=== PATIENT | female | born 1990 | race Caucasian/White ===

== ENCOUNTER 2017-09-25 05:39 | Emergency (ER) | payer OTHER ==
[~2017-09-25 05:39] MED LIST: ALPRAZOLAM2 MG PO; GABAPENTIN100 M2 PO; SOMA350 MG PO
[2017-09-25 06:43] LABS: UA SPECIFIC GRAVITY >=1.030 (1.005-1.035); microscopic required? YES; urine erythrocyte TRACE (NEGATIVE)
[2017-09-25 07:11] LABS: BASOPHIL % 0.6 % (0-2); PLATELET COUNT 289 x10^3mcL (130-400); RED CELL DISTRIBUTION WIDTH 12.8 % (11.5-14.5)
[2017-09-25 07:32] LABS: CALCIUM 8.6 mg/dL (8.5-10.1); CARBON DIOXIDE 27.7 mmol/L (21-32); CHLORIDE SERUM 104 mmol/L (98-107); CREATININE SERUM 0.7 mg/dL (0.6-1.0); GFR1 > 60 mL/min; GLUCOSE SERUM 91 mg/dL (74-106); POTASSIUM SERUM 3.8 mmol/L (3.5-5.1); SODIUM SERUM 138 mmol/L (136-145)
[2017-09-25 07:36] LABS: ALBUMIN 3.4 g/dL (3.4-5.0); ALKALINE PHOSPHATASE 57 U/L (46-116); ALT/SGPT 105 U/L (14-59); AST/SGOT 56 U/L (15-37); BILIRUBIN TOTAL 0.39 mg/dL (0.20-1.00); LIPASE 121 IU/L (73-393); TOTAL PROTEIN, SERUM 7.5 g/dL (6.4-8.2)
[2017-09-25 09:00] VITALS: BP 101/71
[2017-09-25] MEDS ORDERED: NORCO1 TA2 (18:01)
[2017-09-25] MEDS ORDERED: FLO4 (18:02)
== END 2017-09-25 09:00 | disposition home or self-care (01) ==
LOC: ED 05:39
PROVIDERS: Emergency Medicine
DX: N20.1 Calculus of ureter (principal); Z88.8 Allergy status to other drugs, medicaments and biological substances
CPT/HCPCS: J1885; J2270; J2405; J7030

== ENCOUNTER 2017-09-25 15:30 | Inpatient (IN) | payer OTHER ==
[~2017-09-25] VITALS: Ht 160 cm; Wt 76.0 kg
[2017-09-25 17:06] LABS: BASOPHIL % 0.4 % (0-2); PLATELET COUNT 264 x10^3mcL (130-400); RED CELL DISTRIBUTION WIDTH 12.7 % (11.5-14.5)
[2017-09-25 17:18] LABS: CALCIUM 8.3 mg/dL (8.5-10.1); CARBON DIOXIDE 26.3 mmol/L (21-32); CHLORIDE SERUM 105 mmol/L (98-107); CREATININE SERUM 0.8 mg/dL (0.6-1.0); GFR1 > 60 mL/min; GLUCOSE SERUM 98 mg/dL (74-106); POTASSIUM SERUM 4.2 mmol/L (3.5-5.1); SODIUM SERUM 138 mmol/L (136-145)
[2017-09-25] MEDS ORDERED: NORCO1 TA2 (18:01)
[2017-09-25] MEDS ORDERED: FLO4 (18:02)
[2017-09-25 18:30] LABS: microscopic required? YES; urine erythrocyte 2+ (NEGATIVE)
[2017-09-25 18:41] VITALS: BP 123/77
[2017-09-25 19:17] LABS: FREE T4 1.16 ng/dL (0.76-1.46); FREE THYROXINE INDEX 3.6 ug/dL (1.4-4.5); T4(THYROXINE) 9.7 ug/dL (4.7-13.3)
[2017-09-25 19:21] LABS: T3 TOTAL 1.44 ng/mL
[2017-09-25 19:26] LABS: AMPHETAMINE QUAL UR NONE DETECTED (NEG <=1000)
[2017-09-25 20:29] LABS: CHOLESTEROL/HDL RATIO 4.4; MAGNESIUM 1.8 mg/dL (1.8-2.4); PHOSPHOROUS 3.8 mg/dL (2.5-4.9)
[2017-09-25 21:07] VITALS: BP 117/78
[2017-09-26 05:48] VITALS: BP 126/54
[2017-09-26 06:30] LABS: CALCIUM 8.1 mg/dL (8.5-10.1); CARBON DIOXIDE 27.5 mmol/L (21-32); CHLORIDE SERUM 108 mmol/L (98-107); CREATININE SERUM 0.6 mg/dL (0.6-1.0); GFR1 > 60 mL/min; GLUCOSE SERUM 102 mg/dL (74-106); POTASSIUM SERUM 3.7 mmol/L (3.5-5.1); SODIUM SERUM 140 mmol/L (136-145)
[2017-09-26 06:38] LABS: BASOPHIL % 0.4 % (0-2); PLATELET COUNT 234 x10^3mcL (130-400); RED CELL DISTRIBUTION WIDTH 12.8 % (11.5-14.5)
[2017-09-26 08:50] VITALS: BP 106/67
[2017-09-26 13:49] VITALS: BP 121/78
[2017-09-26 17:25] VITALS: BP 113/73
[2017-09-26 20:15] VITALS: BP 129/76
[2017-09-27 05:02] VITALS: BP 102/62
[2017-09-27 06:27] LABS: BASOPHIL % 0.6 % (0-2); PLATELET COUNT 254 x10^3mcL (130-400); RED CELL DISTRIBUTION WIDTH 12.6 % (11.5-14.5)
[2017-09-27 06:28] LABS: CALCIUM 8.1 mg/dL (8.5-10.1); CARBON DIOXIDE 25.7 mmol/L (21-32); CHLORIDE SERUM 108 mmol/L (98-107); CREATININE SERUM 0.6 mg/dL (0.6-1.0); GFR1 > 60 mL/min; GLUCOSE SERUM 96 mg/dL (74-106); MAGNESIUM 1.8 mg/dL (1.8-2.4); PHOSPHOROUS 3.4 mg/dL (2.5-4.9); POTASSIUM SERUM 3.8 mmol/L (3.5-5.1); SODIUM SERUM 141 mmol/L (136-145)
[2017-09-27 09:03] VITALS: BP 116/75
[2017-09-27] MEDS ORDERED: FLO4 PO (12:38)
[2017-09-27] MEDS ORDERED: FLE10 PO (12:39)
[2017-09-27 13:03] VITALS: BP 116/89
== END 2017-09-27 14:05 | disposition home or self-care (01) | DRG 463 ==
LOC: ED 15:30 → DU 18:00
PROVIDERS: Emergency Medicine; ADMIT Family Medicine
DX: N13.6 Pyonephrosis (principal); K76.0 Fatty (change of) liver, not elsewhere classified; N20.1 Calculus of ureter; I10 Essential (primary) hypertension; N12 Tubulo-interstitial nephritis, not specified as acute or chronic; M06.9 Rheumatoid arthritis, unspecified; R31.9 Hematuria, unspecified; Z90.49 Acquired absence of other specified parts of digestive tract
CPT/HCPCS: 83880; 84439; J1885; J2270; J2405; J3010; J7030; Q0092

== ENCOUNTER 2018-01-03 11:08 | Emergency (ER) | payer OTHER ==
[~2018-01-03] VITALS: Ht 157.5 cm; Wt 74.4 kg
[~2018-01-03 11:08] MED LIST changes: +FLE10 PO; +FLO4; +FLO4 PO; +NORCO1 TA2
[2018-01-03 11:12] VITALS: Ht 157.5 cm; Wt 74.4 kg
[2018-01-03 11:38] LABS: microscopic required? NO
[2018-01-03 11:57] LABS: urine erythrocyte NEGATIVE (NEGATIVE)
[2018-01-03 12:58] VITALS: BP 138/84
== END 2018-01-03 13:22 | disposition home or self-care (01) ==
LOC: ED 11:08
PROVIDERS: Emergency Medicine
DX: R10.31 Right lower quadrant pain (principal); R11.10 Vomiting, unspecified; G89.29 Other chronic pain; M54.9 Dorsalgia, unspecified; M19.90 Unspecified osteoarthritis, unspecified site; Z88.6 Allergy status to analgesic agent; Z88.4 Allergy status to anesthetic agent
CPT/HCPCS: J1885; Q0092; Q0162

== ENCOUNTER 2018-01-15 13:31 | Emergency (ER) | payer OTHER ==
[~2018-01-15] VITALS: Ht 157.5 cm; Wt 74.9 kg
[2018-01-15 13:37] VITALS: BP 134/87; Ht 157.5 cm; Wt 74.9 kg
== END 2018-01-15 14:59 | disposition home or self-care (01) ==
LOC: ED 13:31
DX: N39.0 Urinary tract infection, site not specified (principal); M19.90 Unspecified osteoarthritis, unspecified site; G89.29 Other chronic pain; Z88.8 Allergy status to other drugs, medicaments and biological substances; Z90.49 Acquired absence of other specified parts of digestive tract

== ENCOUNTER 2019-12-08 10:50 | Emergency (ER) | payer SELFPAY ==
[~2019-12-08] VITALS: Ht 162.6 cm; Wt 71.7 kg
[2019-12-08 10:54] VITALS: Ht 162.6 cm; Wt 71.7 kg
[2019-12-08 11:51] VITALS: BP 143/87
== END 2019-12-08 11:51 | disposition home or self-care (01) ==
LOC: ED 10:50
DX: B34.9 Viral infection, unspecified (principal); G89.29 Other chronic pain; M54.9 Dorsalgia, unspecified; M19.90 Unspecified osteoarthritis, unspecified site; Z98.890 Other specified postprocedural states; Z88.8 Allergy status to other drugs, medicaments and biological substances